=== PATIENT | female | born 1955 | race Caucasian/White ===

== ENCOUNTER 2016-08-19 08:24 | Emergency (ER) | payer BC ==
[~2016-08-19] VITALS: Ht 165.1 cm; Wt 84.0 kg
[~2016-08-19 08:24] MED LIST: ACTOS30 MG PO; GLUCOPHAGE1000 MG PO; LOW DOSE ASPIRI81 M1 PO; MICROZIDE12.5 M1 PO; PRAVACHOL40 MG PO; PRINIVIL20 MG PO; TRICOR145 MG PO; VITAMIN D PO; [UNRECOGNIZED DRUG - OTHER] PO
[2016-08-19] MEDS ORDERED: ROSUVASTATIN CA40 MG PO (09:08)
[2016-08-19] MEDS ORDERED: JANUVIA100 MG PO (09:09)
[2016-08-19] MEDS ORDERED: INVOKANA300 MG PO (09:09)
[2016-08-19] MEDS ORDERED: LEVOTHYROXINE75 MCG PO (09:10)
[2016-08-19] MEDS ORDERED: FOLIC ACID1 MG PO (09:10)
[2016-08-19] MEDS ORDERED: IRON18 MG PO (09:12)
[2016-08-19] MEDS ORDERED: FOLBIC RF TABL1 EACH PO (09:12)
[2016-08-19] MEDS ORDERED: PERCOCET 5/31 TABLET PO (09:27)
[2016-08-19] MEDS ORDERED: ZOFRAN4 MG PO (09:27)
[2016-08-19 09:53] VITALS: BP 120/49
[2016-08-23] MEDS ORDERED: CALICUM 500+D1 EACH PO (15:16)
== END 2016-08-19 09:54 | disposition home or self-care (01) ==
LOC: EME 08:24
DX: S42.302A Unspecified fracture of shaft of humerus, left arm, initial encounter for closed fracture (principal); W01.0XXA Fall on same level from slipping, tripping and stumbling without subsequent striking against object, initial encounter; Y92.009 Unspecified place in unspecified non-institutional (private) residence as the place of occurrence of the external cause
CPT/HCPCS: 73060; 99281; 99284; J2270

== ENCOUNTER 2016-08-28 09:40 | Day surgery (SDC) | payer BC ==
[~2016-08-28] VITALS: Ht 165.1 cm; Wt 96.3 kg
[~2016-08-28 09:40] MED LIST changes: +CALICUM 500+D1 EACH PO; +FOLBIC RF TABL1 EACH PO; +FOLIC ACID1 MG PO; +INVOKANA300 MG PO; +IRON18 MG PO; +JANUVIA100 MG PO; +LEVOTHYROXINE75 MCG PO; +PERCOCET 5/31 TABLET PO; +ROSUVASTATIN CA40 MG PO; +ZOFRAN4 MG PO
[2016-08-28 10:15] LABS: POINT-OF-CARE METER ID UU14174212
[2016-08-28 10:26] VITALS: BP 162/77
[2016-08-28 15:36] LABS: POINT-OF-CARE METER ID UU13113675
[2016-08-28 18:11] VITALS: BP 157/70
[2016-08-28 22:33] LABS: POINT-OF-CARE METER ID UU14149397
[2016-08-28 23:40] VITALS: BP 143/66
[2016-08-29 04:24] VITALS: BP 142/63
[2016-08-29 10:26] VITALS: BP 141/65
[2016-08-29 11:50] LABS: POINT-OF-CARE METER ID UU14188577
[2016-08-29 11:58] VITALS: BP 132/60
== END 2016-08-29 12:35 | disposition home or self-care (01) ==
LOC: SDC 09:40 → 2SOUTH 13:48 → 3EAST 13:48 → SDC 14:35 → 3EAST 17:43
PROVIDERS: Orthopaedic Surgery
PROC: 0PH Upper Bones, Insertion (ICD-10-PCS; principal; 2016-08-28)
DX: S42.342A Displaced spiral fracture of shaft of humerus, left arm, initial encounter for closed fracture (principal); E11.9 Type 2 diabetes mellitus without complications; E03.9 Hypothyroidism, unspecified; I10 Essential (primary) hypertension; E78.5 Hyperlipidemia, unspecified; C90.00 Multiple myeloma not having achieved remission; Z79.84 Long term (current) use of oral hypoglycemic drugs; W19.XXXA Unspecified fall, initial encounter
CPT/HCPCS: 73060; 76000; 82948; 93005; C1713; G0378; J0330; J0690; J1170; J2250; J2405; J3010; J7050; J7120

== ENCOUNTER → 2017-01-09 | Outpatient (CLI) | payer BC | END | disposition home or self-care (01) | LOC: AMB 12:38 | PROC: B02B1ZZ Computerized Tomography (CT Scan) of Spinal Cord using Low Osmolar Contrast (ICD-10-PCS; principal; 2017-01-09) | DX: M51.26 Other intervertebral disc displacement, lumbar region (principal); M21.371 Foot drop, right foot | CPT/HCPCS: 62304; 72132 ==